=== PATIENT | female | born 1950 | race Caucasian/White ===

== ENCOUNTER → 2016-10-20 | Outpatient (CLI) | payer BC, MEDICARE | END | disposition home or self-care (01) | LOC: GMAH 12:17 | PROVIDERS: ATTEND Family Medicine | DX: M06.9 Rheumatoid arthritis, unspecified (principal) ==

== ENCOUNTER → 2017-01-14 | Outpatient (CLI) | payer MEDICARE, BC | END | disposition home or self-care (01) | LOC: LAB.O 09:21 | PROVIDERS: ATTEND Internal Medicine | DX: M06.9 Rheumatoid arthritis, unspecified (principal); M79.7 Fibromyalgia ==

== ENCOUNTER → 2017-09-17 | Outpatient (CLI) | payer MEDICARE, OTHER ==
--- NOTE | 2017-09-18 09:31 | MRI ---
Study: MRI of the Right Shoulder. Indication: SHOULDER PAIN Technique: Multiplanar, multi sequence MRI of the right shoulder was obtained without intravenous contrast. Comparison: None. Findings: Mild hypertrophic AC joint osteoarthritis. Mild type III acromion with mild lateral downsloping. Moderate volume subacromial/subdeltoid bursal fluid. High-grade supraspinatus and infraspinatus tendinosis noted with full-thickness tearing of the anterior two thirds infraspinatus tendon insertion and high-grade articular tearing throughout the remainder of the supraspinatus tendon. High-grade interstitial tearing of the anterior half infraspinatus tendinosis well. Torn tendon fibers medially retracted by up to 9 mm. Subscapularis tendinosis. Teres minor tendon intact. Grade 1 fatty infiltration with mild atrophy of the infraspinatus muscle belly. Intracapsular long head biceps tendinosis without tear. High-grade tearing free edge and undersurface superior labrum. Minimal glenohumeral joint osteoarthritis with a joint effusion. No acute fracture. Mild cystic change junction humeral head and greater tuberosity. Thickening and edema inferior glenohumeral ligament which can be seen with adhesive capsulitis. Impression: Full-thickness tearing anterior supraspinatus tendon with high-grade tearing throughout the remainder of the supraspinatus tendon and anterior infraspinatus tendon. Subscapularis tendinosis. Intracapsular long head biceps tendinosis. Superior labral tearing. Minimal glenohumeral joint osteoarthritis. Adhesive capsulitis. Mild hypertrophic AC joint osteoarthritis. Electronically signed by: Darryl Varghese MD 09/18/2017 9:30 AM CDT
== END ==
LOC: MRI 13:02
PROVIDERS: ATTEND Family Medicine
DX: M75.101 Unspecified rotator cuff tear or rupture of right shoulder, not specified as traumatic (principal); M19.011 Primary osteoarthritis, right shoulder; M75.01 Adhesive capsulitis of right shoulder

== ENCOUNTER 2018-05-22 14:11 | Emergency (ER) | payer MEDICARE, OTHER ==
[2018-05-22] MEDS ORDERED: SODIUM CHLORIDE 0.9% 1000ML 1,000 ML IVS ONE (14:32)
[2018-05-22 14:33] VITALS: TEMP 98.2
[2018-05-22] MEDS ORDERED: ONDANSETRON INJ 4 MG/2 ML VIAL IV ONE (14:33)
--- NOTE | 2018-05-22 14:36 | ED.PDOC ---
History of Present Illness - General Chief Complaint: Blood Pressure Problem Stated Complaint: dizziness,elevated BP Time Seen by Provider: 05/22/18 14:24 Source: patient Exam Limitations: no limitations - History of Present Illness Initial Comments: Woke this am with vertigo. Became nauseated [employer]. Has had sinus congestion x 2- 3 days. Had elevated BP at home Severity: severe Activities at Onset: rest Prior Chest Pain/Cardiac Workup: no prior chest pain Improving Factors: immobilization, rest Worsening Factors: movement Nitro Today/Relief: no nitro taken today Aspirin Treatment Today: no aspirin today Associated Symptoms: nausea/vomiting, weakness Allergies/Adverse Reactions: Allergies Penicillins Allergy (Verified 05/22/18 14:33) Home Medications: Ambulatory Orders LORazepam [Ativan] 0.5 mg PO Q6HR PRN #15 tab 05/22/18 Ondansetron HCl [Zofran] 4 mg PO Q6HR PRN #15 ml 05/22/18 Review of Systems - Review of Systems Constitutional: States: weakness. Denies: diaphoresis EENTM: States: nose congestion. Denies: blurred vision, ear pain, throat pain Respiratory: States: no symptoms reported Cardiology: Denies: chest pain, syncope Gastrointestinal/Abdominal: States: nausea. Denies: abdominal pain, diarrhea, vomiting Genitourinary: States: no symptoms reported Musculoskeletal: States: no symptoms reported Skin: States: change in color - flushed upper chest, neck and face Neurological: States: anxiety, weakness Endocrine: States: no symptoms reported Hematologic/Lymphatic: States: no symptoms reported Past Medical History (General) - Patient Medical History Hx Stroke: No Hx Congestive Heart Failure: No Hx Hypertension: Yes Hx Diabetes: No Surgical History: Hysterectomy - Vaccination History Hx Influenza Vaccination: Yes Hx Pneumococcal Vaccination: Yes - Social History Hx Tobacco Use: No Family Medical History - Family History Mother Family History: Unknown Living Status: Unknown Physical Exam - Physical Exam General Appearance: Alert, Anxious Eyes, Ears, Nose, Throat Exam: PERRL/EOMI - no nystagmus, TMs normal, pharynx normal Neck: non-tender, full range of motion, supple Respiratory: chest non-tender, lungs clear, normal breath sounds Cardiovascular/Chest: normal peripheral pulses, regular rate, rhythm Gastrointestinal/Abdominal: normal bowel sounds, non tender, soft Extremity: normal range of motion, non-tender, normal inspection, no pedal edema Neurologic: grid caster II-XII nml as tested, no motor/sensory deficits, alert, oriented x 3 Skin Exam: other - flushed Lymphatic: no adenopathy Progress - EKG/XRAY/CT EKG: Sinus, RBBB Comments: LAFB; rate 98, pr 166, qrs 142 Departure - Departure Clinical Impression: Vertigo Hypertension Qualifiers: Hypertension type: essential hypertension Qualified Code(s): I10 - Essential ( primary) hypertension Disposition: Discharge to Home or Self Care Departure Forms: ED Discharge - Pt. Copy, Patient Portal Self Enrollment Instructions: DI for High Blood Pressure Referrals: Cy Holman MD [Primary Care Provider] - 1-2 Weeks Prescriptions: LORazepam [Ativan] 0.5 mg PO Q6HR PRN #15 tab PRN Reason: Dizziness Ondansetron HCl [Zofran] 4 mg PO Q6HR PRN #15 ml PRN Reason: Nausea Home Medications: Ambulatory Orders LORazepam [Ativan] 0.5 mg PO Q6HR PRN #15 tab 05/22/18 Ondansetron HCl [Zofran] 4 mg PO Q6HR PRN #15 ml 05/22/18
[2018-05-22 17:13] VITALS: BP 167/90; O2SAT 95
== END 2018-05-22 17:13 | disposition home or self-care (01) ==
LOC: ER 14:11
DX: R42 Dizziness and giddiness (principal); I10 Essential (primary) hypertension; I45.10 Unspecified right bundle-branch block; I44.4 Left anterior fascicular block; Z79.899 Other long term (current) drug therapy; Z88.0 Allergy status to penicillin
CPT/HCPCS: 36415; 80053; 85025; 93005; J2060; J2405; J7030

== ENCOUNTER → 2018-08-17 | Outpatient (CLI) | payer MEDICARE, OTHER | LOC: GMAH 14:40 | PROVIDERS: ATTEND Family Medicine | DX: I10 Essential (primary) hypertension (principal) ==

== ENCOUNTER 2019-02-24 21:34 | Emergency (ER) | payer MEDICARE, OTHER ==
[2019-02-24] MEDS ORDERED: IBUPROFEN 200 MG TAB PO ONE (22:03)
[2019-02-24] MEDS ORDERED: ONDANSETRON ODT 8 MG TAB SL ONE (22:03)
[2019-02-24] MEDS ORDERED: metroNIDAZOLE IV PREMIX 500MG 500 MG in PREMIX BAG 1 BAG IVPB ONE (22:39)
[2019-02-24] MEDS ORDERED: levoFLOXacin 500MG IV 500 MG in PREMIX BAG 1 BAG IVPB ONE (22:39)
[2019-02-24] MEDS ORDERED: levoFLOXacin 500MG IV 100 ML IVPB ONE (23:10)
[2019-02-24] MEDS ORDERED: metroNIDAZOLE IV PREMIX 500MG 100 ML IVPB ONE (23:11)
--- NOTE | 2019-02-24 23:27 | RAD ---
CLINICAL HISTORY: nausea fever, left side pain COMPARISON: None. TECHNIQUE: XR ABDOMEN SUPINE AND ERECT WITH CHEST (ABD ACUTE SERIES) 02/24/2019 10:04 PM CDT FINDINGS: There is moderate stool throughout the colon. There are coarse calcifications within the bilateral lateral aspects of the abdomen. Osseous structures are grossly unremarkable. There is a left upper lobe nodule measuring 1 cm. IMPRESSION: Nonspecific bowel gas pattern. Left upper lobe 1 cm pulmonary nodule. Recommend CT. Electronically signed by: Declan Mejia MD 02/24/2019 11:25 PM CDT
[2019-02-24 23:50] VITALS: O2SAT 95
--- NOTE | 2019-02-24 23:57 | CT ---
EXAM DESCRIPTION: Abdoment/Pelvis w/o Contrast CLINICAL HISTORY: fever, nv, mild increase lft, left side pain COMPARISON: None Available TECHNIQUE: Contiguous axial images of the abdomen and pelvis were obtained followed by reconstruction images. This exam was performed according to our departmental dose-optimization program, which includes automated exposure control, adjustment of the mA and/or kV according to patient size and/or use of iterative reconstruction technique. FINDINGS: Linear opacities within the lungs may represent scar versus subsegmental atelectasis. There is atherosclerosis. The liver is of decreased attenuation compatible with fatty infiltration. There is a 2.1 cm left renal cyst. The liver, spleen, pancreas and kidneys are otherwise within normal limits. There is no hydronephrosis or renal stones. The gallbladder is unremarkable by CT criteria. Adrenal glands are within normal limits. Aorta is of normal caliber and tapering. There is no free fluid in the abdomen or pelvis. There is no bowel obstruction. There is no stranding of the mesenteric fat to suggest an inflammatory response. The appendix was not visualized with certainty. There is no pericecal inflammation. IMPRESSION: No acute intra-abdominal abnormality. Electronically signed by: Adan Berry MD 02/24/2019 11:55 PM CDT
--- NOTE | 2019-02-25 00:34 | ED.PDOC ---
History of Present Illness - General Chief Complaint: GI Problem Stated Complaint: nausea and chills Time Seen by Provider: 02/24/19 21:58 Source: patient Exam Limitations: no limitations - History of Present Illness Initial Comments: the patient is a 69-year-old female presenting to the emergency room secondary to nausea for the better part of today along with some abdominal cramping. No vomiting and no diarrhea. She does show up with a fever more than 102. She does have some generalized abdominal discomfort but no point tenderness. No localized tenderness over the right upper or right lower quadrant. She may have a little more discomfort over the left lateral abdomen. No palpable mass. The patient is obese. No history of diverticulitis or gallbladder issues. No urinary symptoms. Timing/Duration: other - 10 hours Severity: moderate Improving Factors: nothing Worsening Factors: nothing Associated Symptoms: diaphoresis, fever/chills, loss of appetite, malaise, nausea/vomiting, weakness - generalized Allergies/Adverse Reactions: Allergies Penicillins Allergy (Verified 05/22/18 14:33) Home Medications: Ambulatory Orders LORazepam [Ativan] 0.5 mg PO Q6HR PRN #15 tab 05/22/18 Ondansetron HCl [Zofran] 4 mg PO Q6HR PRN #15 ml 05/22/18 Ciprofloxacin [Cipro] 500 mg PO BID #14 tab 02/25/19 Famotidine [Pepcid Tab] 20 mg PO BID #20 tab 02/25/19 Metronidazole 500 mg PO TID #21 tab 02/25/19 Ondansetron Odt [Zofran ODT] 4 mg PO Q8HR PRN #5 tab 02/25/19 Review of Systems - Review of Systems Constitutional: States: fever, malaise, weakness - generalized EENTM: States: no symptoms reported Respiratory: States: no symptoms reported Cardiology: States: no symptoms reported Gastrointestinal/Abdominal: States: nausea. Denies: constipation, diarrhea, vomiting Genitourinary: States: no symptoms reported Musculoskeletal: States: no symptoms reported Skin: States: no symptoms reported Neurological: States: anxiety Endocrine: States: no symptoms reported All other Systems: No Change from Baseline Past Medical History (General) - Patient Medical History Hx Stroke: No Hx Congestive Heart Failure: No Hx Hypertension: Yes Hx Diabetes: No Surgical History: Hysterectomy, other - Vaccination History Hx Influenza Vaccination: Yes Hx Pneumococcal Vaccination: Yes - Social History Hx Tobacco Use: No Family Medical History - Family History Mother Family History: Unknown Living Status: Unknown Physical Exam - Physical Exam General Appearance: Alert, Anxious, Ill Appearing Eye Exam: bilateral normal Ears, Nose, Throat: hearing grossly normal, normal ENT inspection Neck: full range of motion, supple Respiratory: lungs clear, normal breath sounds, no respiratory distress, no accessory muscle use Cardiovascular/Chest: normal peripheral pulses, no edema, tachycardia Peripheral Pulses: radial,right: 2+, radial,left: 2+, dorsalis pedis,right: 2+, dorsalis pedis,left: 2+ Gastrointestinal/Abdominal: soft, other - see history of present illness Rectal Exam: deferred Back Exam: no CVA tenderness, no vertebral tenderness Extremity: normal range of motion, non-tender, normal inspection, no pedal edema, normal capillary refill Neurologic: leaf coverer II-XII nml as tested, alert, normal mood/affect - she is anxious, oriented x 3 Skin Exam: diaphoresis Comments: Vital Signs - 24 hr 02/24/19 02/24/19 21:40 23:35 Temperature 102.4 F H 100.1 F H Pulse Rate [ 129 H 108 H Right Arm] Respiratory 20 16 Rate Blood Pressure 182/94 144/77 [Left Arm] O2 Sat by Pulse 94 L 95 Oximetry Progress - Progress Progress: 02/25/19 00:35 the patient's a 69-year-old female presenting to the emergency room secondary to nausea and fever. The patient most likely has a bacterial gastroenteritis. Laboratory work shows a mild leukocytosis along with a very mild elevation of liver function tests. She has no tenderness over the gallbladder. CT scan is negative for any acute pathology. The patient actually felt much better after the Motrin and her fever came down. She received a liter of IV fluids as well as initial doses of ciprofloxacin and metronidazole. The blood culture has been done. She needs to keep herself well hydrated. She'll be written for oral ciprofloxacin and metronidazole for the next 7 days. She'll also be written for Zofran for as needed use to control any nausea or vomiting. She needs to follow back up with her primary care doctor early next week. Obviously if the patient has worsening in any way then she will need a repeat evaluation. ER warnings were given. - Results/Orders Results/Orders: acute abdominal series appears benign. CT of abdomen and pelvis without contrast shows no evidence of any acute pathology. No obvious diverticulitis or gallbladder disease. Laboratory Tests 02/24/19 02/24/19 02/24/19 22:10 22:30 22:30 WBC 11.4 H RBC 4.34 Hgb 13.9 Hct 40.8 MCV 94.0 MCH 32.0 H MCHC 34.0 RDW 14.7 H Plt Count 156 MPV 9.4 Absolute Neuts (auto) 9.70 H Absolute Lymphs (auto) 0.50 L Absolute Monos (auto) 1.20 H Absolute Eos (auto) 0.00 Absolute Basos (auto) 0.00 Neutrophils % 85.5 H Lymphocytes % 4.0 L Monocytes % 10.2 H Eosinophils % 0.1 L Basophils % 0.2 Sodium 134 L Potassium 3.7 Chloride 97 L Carbon Dioxide 23 Anion Gap 17.7 BUN 18 Creatinine 0.92 BUN/Creatinine Ratio 19.6 Random Glucose 152 H Serum Osmolality 273.1 L Lactic Acid Calcium 9.8 Total Bilirubin 2.6 H* AST 247 H ALT 171 H Alkaline Phosphatase 79 Creatine Kinase 233 H* CK-MB (CK-2) 3.2 CK-MB (CK-2) % Not Reportable Troponin I 0.04 Serum Total Protein 7.0 Albumin 4.7 Globulin 2.3 Albumin/Globulin Ratio 2.0 H Amylase 26 L Lipase 30 Urine Color Dk yellow H Urine Appearance Clear Urine pH 7.0 Ur Specific [place] 1.020 Urine Protein Negative Urine Glucose (UA) Negative Urine Ketones Negative Urine Blood Negative Urine Nitrite Negative Urine Bilirubin Small H Urine Urobilinogen 2.0 H Ur Leukocyte Esterase Negative Urine RBC 0-1 Urine WBC 0 Ur Epithelial Cells 0-1 Urine Bacteria 0 02/24/19 22:30 WBC RBC Hgb Hct MCV MCH MCHC RDW Plt Count MPV Absolute Neuts (auto) Absolute Lymphs (auto) Absolute Monos (auto) Absolute Eos (auto) Absolute Basos (auto) Neutrophils % Lymphocytes % Monocytes % Eosinophils % Basophils % Sodium Potassium Chloride Carbon Dioxide Anion Gap BUN Creatinine BUN/Creatinine Ratio Random Glucose Serum Osmolality Lactic Acid 2.3 H Calcium Total Bilirubin AST ALT Alkaline Phosphatase Creatine Kinase CK-MB (CK-2) CK-MB (CK-2) % Troponin I Serum Total Protein Albumin Globulin Albumin/Globulin Ratio Amylase Lipase Urine Color Urine Appearance Urine pH Ur Specific [place] Urine Protein Urine Glucose (UA) Urine Ketones Urine Blood Urine Nitrite Urine Bilirubin Urine Urobilinogen Ur Leukocyte Esterase Urine RBC Urine WBC Ur Epithelial Cells Urine Bacteria Departure - Departure Clinical Impression: Gastroenteritis Disposition: Discharge to Home or Self Care Condition: Fair Departure Forms: ED Discharge - Pt. Copy, Patient Portal Self Enrollment Instructions: Viral Gastroenteritis, Adult (DC) Diet: bland diet Activity: increase activity as tolerated Referrals: Deny Melvin MD [Primary Care Provider] - 1-2 Weeks Prescriptions: Ondansetron Odt [Zofran ODT] 4 mg PO Q8HR PRN #5 tab PRN Reason: Nausea--Moderate Ciprofloxacin [Cipro] 500 mg PO BID #14 tab Famotidine [Pepcid Tab] 20 mg PO BID #20 tab Metronidazole 500 mg PO TID #21 tab Home Medications: Ambulatory Orders LORazepam [Ativan] 0.5 mg PO Q6HR PRN #15 tab 05/22/18 Ondansetron HCl [Zofran] 4 mg PO Q6HR PRN #15 ml 05/22/18 Ciprofloxacin [Cipro] 500 mg PO BID #14 tab 02/25/19 Famotidine [Pepcid Tab] 20 mg PO BID #20 tab 02/25/19 Metronidazole 500 mg PO TID #21 tab 02/25/19 Ondansetron Odt [Zofran ODT] 4 mg PO Q8HR PRN #5 tab 02/25/19 Additional Instructions: the patient's a 69-year-old female presenting to the emergency room secondary to nausea and fever. The patient most likely has a bacterial gastroenteritis. Laboratory work shows a mild leukocytosis along with a very mild elevation of liver function tests. She has no tenderness over the gallbladder. CT scan is negative for any acute pathology. The patient actually felt much better after the Motrin and her fever came down. She received a liter of IV fluids as well as initial doses of ciprofloxacin and metronidazole. The blood culture has been done. She needs to keep herself well hydrated. She'll be written for oral ciprofloxacin and metronidazole for the next 7 days. She'll also be written for Zofran for as needed use to control any nausea or vomiting. She needs to follow back up with her primary care doctor early next week. Obviously if the patient has worsening in any way then she will need a repeat evaluation. ER warnings were given.
[2019-02-25 01:57] VITALS: BP 113/59; TEMP 99.4
== END 2019-02-25 01:55 | disposition home or self-care (01) ==
LOC: ER 21:34
DX: K52.9 Noninfective gastroenteritis and colitis, unspecified (principal); I10 Essential (primary) hypertension; Z79.899 Other long term (current) drug therapy; Z88.0 Allergy status to penicillin
CPT/HCPCS: 36415; 74019; 74176; 80053; 81001; 82150; 82550; 82553; 83605; 83690; 84484; 85025; 87040; J1956; J3490

== ENCOUNTER → 2019-03-01 | Outpatient (CLI) | payer MEDICARE, OTHER ==
--- NOTE | 2019-03-02 10:23 | CT ---
EXAM DESCRIPTION: Chest w/wo Contrast : Computed Tomography. 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 CT scan abdomen and pelvis 02/24/2019. TECHNIQUE: Spiral-axial scans at 5 x 5 mm intervals through the lungs and thorax without and with IV contrast. 2.5 x 5 mm lung algorithm axial reconstructions. Coronal and sagittal 2.0 Mm reconstructions. No adverse reactions. Total Exam DLP: 1406.28 mGy-cm. This exam was performed according to our departmental dose-optimization program which includes automated exposure control, adjustment of the mA and/or kV according to patient size and/or use of iterative reconstruction technique; to reduce radiation dose to as low as reasonably achievable (ALARA). Nodule measurements under 10 mm are given as mean value of 3 axes diameters. FINDINGS: Lungs and large airways: 4 mm groundglass nodule subpleural location in the superior segment left lower lobe on axial image series 7/66. Also pleural extension. Flat appearance on the coronal series/image 605/117 indicates it is associated with a segmental or subsegmental fissure. Pleural parenchymal scarring in the lingula. Groundglass diffuse density medial posterior recess right lower lobe with a 4.7 mm nodule on image 4/96-97. This is more linear on the coronal series 605, images 98 and 99. Pleural spaces: Negative. Mediastinum and Richa: No nodes or dominant soft tissue masses. Great vessels and Heart: Coronary artery calcifications and descending thoracic aorta atherosclerotic calcifications. Soft tissues of neck base, axillae, and chest wall: Mass versus focal asymmetry posterior and superior to left nipple almost 1 cm diameter.Tab Upper abdomen: No free fluid or free air in the included peritoneal cavity. Refer to previous scan at this facility on 02/24/2019. Osseous structures: Spondylosis at multiple levels of thoracic spine. Prior surgery right shoulder. Bilateral arthrosis first costochondral junctions. No lytic or blastic lesions. IMPRESSION: 1. 4 mm groundglass nodule subpleural in the left lower lobe, which may be a kapil-fissural nodule. 4.7 mm groundglass nodule which could be part of a larger process in the medial posterior recess and subpleural, right medial lower lobe. Multiple pulmonary nodules. [facility] Best Practice recommendations: Most significant findin.7 mm ground glass pulmonary nodule. Recommend a non-contrast Chest CT at 3-6 months. If stable, consider follow-up non-contrast Chest CTs at 2 and 4 years. These guidelines do not apply to immunocompromised patients and patients with cancer. Follow up in patients with significant comorbidities as clinically warranted. For lung cancer screening, adhere to Lung-RADS guidelines. Reference: Radiology. 2017; 284(1):228-43. 2. Focal asymmetry versus mass density upper left breast. If patient is not part of a breast screening program in the past 12 months, recommend bilateral diagnostic digital mammographic follow-up. Electronically signed by: Chalo Francisco MD 03/02/2019 10:22 AM CDT
== END ==
LOC: CT 13:24
PROVIDERS: ATTEND Family Medicine
DX: R91.8 Other nonspecific abnormal finding of lung field (principal); R92.8 Other abnormal and inconclusive findings on diagnostic imaging of breast

== ENCOUNTER → 2019-03-28 | Outpatient (CLI) | payer MEDICARE, OTHER ==
--- NOTE | 2019-03-29 17:38 | MAM ---
EXAM DESCRIPTION: 3D Screening BILATERAL : Digital Mammography. CLINICAL HISTORY: 69 years Female ANNUAL SCREENING . No complaints or personal history of breast cancer. Sister with breast cancer at age 75.. Menarche age 11. Childbirth. Postmenopausal 20+ years. HRT 5 or more years ago. Benign right breast cyst aspiration. Bilateral breast reduction. Lifetime risk of developing breast cancer (Tyrer-Cuzick model)(%): Not calculated COMPARISON: 2-D digital screening bilateral mammography 02/27/2010.. TECHNIQUE: Bilateral CC and MLO projection full-field images, digital tomosynthesis mammographic technique. Bilateral digital 2-D full-field MLO images. CAD not available for tomosynthesis or 2-D images. FINDINGS: The breast parenchymal density pattern is: Scattered areas of fibroglandular density. No skin thickening or nipple retraction. Bilateral breast reduction has been performed since the prior study. Scattered microcalcifications bilaterally. No new focal, stellate mass or density, focal asymmetry , and no suspicious microcalcifications bilaterally. IMPRESSION: Benign exam. BIRAD CATEGORY: 2 BENIGN FINDINGS. RECOMMENDATIONS: FOLLOW UP: Routine digital bilateral mammographic screening, one year interval from March 2019. Written communication explaining the IMPRESSION and follow-up, will be mailed to the patient and referring health care provider. According to the [employer], yearly mammograms are recommended starting at age 40 and continuing as long as a woman is in good health. Any breast change noted on a breast self-exam should be reported promptly to the patient's healthcare provider. Breast MRI is recommended for women with an approximately 20-25% or greater lifetime risk of breast cancer, including women with a strong family history of breast or ovarian cancer and women who have been treated for Hodgkin's disease. A negative mammographic report should not delay tissue diagnosis in patients with significant clinical history or physical findings. Extremely dense breast tissue limits the sensitivity of digital mammography. Electronically signed by: Chalo Francisco MD 03/29/2019 5:36 PM CDT
== END ==
LOC: MAMMO 12:57
PROVIDERS: ATTEND Family Medicine
DX: Z12.31 Encounter for screening mammogram for malignant neoplasm of breast (principal)

== ENCOUNTER → 2019-04-25 | Outpatient (CLI) | payer MEDICARE, OTHER | LOC: LAB.O 13:43 | PROVIDERS: ATTEND Nurse Practitioner | DX: Z79.899 Other long term (current) drug therapy (principal) ==

== ENCOUNTER → 2019-05-03 | Outpatient (CLI) | payer MEDICARE, OTHER | LOC: GMA MATASK 16:55 | PROVIDERS: ATTEND Family Medicine | DX: E03.9 Hypothyroidism, unspecified (principal) ==

== ENCOUNTER → 2020-07-31 | Outpatient (CLI) | payer MEDICARE, OTHER | LOC: GMA MATASK 10:47 | PROVIDERS: ATTEND Family Medicine | DX: E03.9 Hypothyroidism, unspecified (principal); I10 Essential (primary) hypertension ==